=== PATIENT | male | born 1945 | race Caucasian/White ===

== ENCOUNTER 2022-03-31 16:18 | Emergency (ER) | payer BC ==
[~2022-03-31] VITALS: Ht 172.7 cm; Wt 80.7 kg
[2022-03-31 16:43] VITALS: BP_SYST 138
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
[2022-03-31] MEDS ORDERED: DIPHTH,PERTUSS(ACELL),TET VAC 0.5 ML VIAL (Tdap) I.M. ONE (18:45)
[2022-03-31] MEDS ORDERED: LIDOCAINE/EPI 1% 1:100000 20 ML VIAL INJ ONE (19:00)
--- NOTE | 2022-03-31 19:07 | NUR ---
RECIEVED REPORT FROM RADHA PEREZ.
--- NOTE | 2022-03-31 19:29 | NUR ---
DR. GARG AT BEDSIDE WITH PATIENT.
[2022-03-31] MEDS ORDERED: BACITRACIN 1 GM OINT TP ONE (19:45)
--- NOTE | 2022-03-31 19:50 | NUR ---
Patient given written and verbal discharge instructions and verbalizes understanding. ER MD discussed with patient the results and treatment provided. Patient in stable condition. ID arm band removed. IV catheter removed intact and dressing applied, no active bleeding. Rx of N/A given. Patient educated on pain management and to follow up with PMD. Pain Scale . Opportunity for questions provided and answered. Medication side effect fact sheet provided.
== END 2022-03-31 19:49 | disposition home or self-care (01) ==
LOC: SED 16:18
DX: S51.012A Laceration without foreign body of left elbow, initial encounter (principal); Z79.899 Other long term (current) drug therapy; W01.0XXA Fall on same level from slipping, tripping and stumbling without subsequent striking against object, initial encounter; Y93.89 Activity, other specified; Y92.89 Other specified places as the place of occurrence of the external cause; Y99.8 Other external cause status
CPT/HCPCS: 90715; 99283